=== PATIENT | female | born 1950 | race American Indian/Alaskan Native ===

== ENCOUNTER 2016-12-25 16:35 | Inpatient (IN) | payer MEDICARE, MEDICAID ==
[2016-12-25] MEDS ORDERED: Sodium Chloride 0.9% 1,000 ML IV STA ×2 (17:24→19:46)
--- NOTE | 2016-12-25 17:27 | ED PDOC ---
Arrival/HPI - General Time Seen by Provider: 12/25/16 17:03 - History of Present Illness Narrative History of Present Illness (Text): 12/25/16 17:23 66 yo female, hx of htn, dm, legally blind, presents with pereira, weakness. as per pt, reports "she is not being fed at home". pt reports "she does not wish to go home". pt denies fevers, cough, cp, abd pain, n/v/d, urainry changes, Past Medical History - Provider Review Nursing Documentation Reviewed: Yes - Cardiac Hx Hypertension: Yes - Pulmonary Hx Respiratory Disorders: No - Neurological Hx Neurological Disorder: No - HEENT Hx HEENT Disorder: Yes (Since ) - Renal Hx Renal Disorder: No - Endocrine/Metabolic Hx Diabetes Mellitus Type 2: Yes - Hematological/Oncological Hx Blood Disorders: No - Integumentary Hx Dermatological Disorder: No - Musculoskeletal/Rheumatological Hx Musculoskeletal Disorders: No - Gastrointestinal Hx Gastrointestinal Disorders: No - Genitourinary/Gynecological Hx Genitourinary Disorders: No - Psychiatric Hx Psychophysiologic Disorder: No Hx Substance Use: No - Anesthesia Hx Anesthesia: No Family/Social History Family/Social History: Unknown Family HX Smoking Status: Never Smoked Hx Alcohol Use: No Hx Substance Use: No Allergies/Home Meds Allergies/Adverse Reactions: Allergies No Known Allergies Allergy (Verified 02/21/16 01:11) Home Medications: Home Meds Medication Instructions Recorded Confirmed Amlodipine Besylate/Benazepril 1 cap PO DAILY 12/25/16 12/26/16 [Amlodipine Besylate and Benazepril Hydrochlor] Insulin Lispro Mix 75/25 [humalog 26 units SC ACBD 12/25/16 12/26/16 Mix 75/25 75 U/Ml-25 U/Ml 10 Ml] hydrALAZINE [Apresoline] 25 mg PO TID 12/25/16 12/26/16 Review of Systems - Review of Systems Constitutional: Normal Eyes: Normal ENT: Normal Respiratory: Normal Cardiovascular: Normal Gastrointestinal: Normal Genitourinary Female: Normal Musculoskeletal: Normal Skin: Normal Neurological: Normal Endocrine: Normal Hemo/Lymphatic: Normal Psychiatric: Normal Physical Exam Vital Signs Temp Pulse Resp BP Pulse Ox 12/25/16 17:17 97.8 F 90 20 151/78 H 95 Temperature: Afebrile Blood Pressure: Hypertensive Pulse: Regular Respiratory Rate: Normal Appearance: Positive for: Well-Appearing, Non-Toxic, Comfortable Pain Distress: None Mental Status: Positive for: Alert and Oriented X 3 - Systems Exam Head: Present: Atraumatic, Normocephalic Pupils: Present: PERRL Extroacular Muscles: Present: EOMI Conjunctiva: Present: Normal Mouth: Present: Moist Mucous Membranes Neck: Present: Normal Range of Motion Respiratory/Chest: Present: Clear to Auscultation, Good Air Exchange. No: Respiratory Distress, Accessory Muscle Use Cardiovascular: Present: Regular Rate and Rhythm, Normal S1, S2. No: Murmurs Abdomen: Present: Normal Bowel Sounds. No: Tenderness, Distention, Peritoneal Signs Back: Present: Normal Inspection Upper Extremity: Present: Normal Inspection. No: Cyanosis, Edema Lower Extremity: Present: Normal Inspection. No: Edema Neurological: Present: GCS=15, CN II-XII Intact, Speech Normal, Motor Func Grossly Intact, Normal Sensory Function, Normal Cerebellar Funct Skin: Present: Warm, Dry, Normal Color. No: Rashes Psychiatric: Present: Alert, Oriented x 3, Normal Insight, Normal Concentration Medical Decision Making ED Course and Treatment: 12/25/16 17:26 will r/o other metabolic, infectious, intracranial etiology- attemptign to reach socical worker. 12/27/16 08:01 endorse dto mainframe consultant pending final dispo, labs - Lab Interpretations Lab Results: 12/25/16 18:15 12/25/16 18:15 Lab Results 12/25/16 18:15: Sodium 139, Potassium 3.5 L, Chloride 103, Carbon Dioxide 27, Anion Gap 13, BUN 16, Creatinine 1.4, Est GFR ( Amer) 46, Est GFR (Non- Af Amer) 38, Random Glucose 142 H, Calcium 9.7, Magnesium 1.6 L, Total Bilirubin 0.5, AST 22, ALT 20, Alkaline Phosphatase 95, Lactate Dehydrogenase 300 L, Total Creatine Kinase 93, Troponin I < 0.01, Total Protein 7.5, Albumin 4.0, Globulin 3.5, Albumin/Globulin Ratio 1.1 12/25/16 18:15: PT 10.4, INR 0.96, APTT 27.1 12/25/16 18:15: WBC 8.0, RBC 4.25, Hgb 12.6, Hct 38.0, MCV 89.4, MCH 29.6, MCHC 33.2, RDW 13.7, Plt Count 235, MPV 11.0, Gran % 78.6 H, Lymph % (Auto) 13.3 L, [place] % (Auto) 7.2 H, Eos % (Auto) 0.5 L, Baso % (Auto) 0.4, Gran # 6.27, Lymph # 1.1 L, [place] # 0.6, Eos # 0.0, Baso # 0.03 - RAD Interpretation Radiology Orders: 12/25/16 17:22 CHEST PORTABLE [RAD] Stat 12/25/16 17:23 HEAD W/O CONTRAST [CT] Stat - Medication Orders Current Medication Orders: Amlodipine Besylate (Norvasc) 10 mg PO DAILY [facility] Last Admin: 12/26/16 10:14 Dose: 10 mg Aspirin (Ecotrin) 81 mg PO DAILY [facility] Last Admin: 12/26/16 10:14 Dose: 81 mg Atorvastatin Calcium (Lipitor) 20 mg PO DIN [facility] Last Admin: 12/26/16 17:56 Dose: 20 mg Hydrochlorothiazide (Microzide) 12.5 mg PO DAILY [facility] Last Admin: 12/26/16 10:14 Dose: 12.5 mg Insulin Human Regular (Humulin R Low) 0 units SC ACHS [facility] PRN Reason: Protocol Last Admin: 12/26/16 21:43 Dose: Not Given Non-Admin Reason: Blood Sugar Parameter Insulin Lispro Protam/Lispro Human (Humalog Mix 75/25) 26 units SC ACBD [facility] Last Admin: 12/26/16 18:39 Dose: 26 unit Lisinopril (Zestril) 20 mg PO DAILY [facility] Last Admin: 12/26/16 10:14 Dose: 20 mg Pantoprazole Sodium (Protonix Ec Tab) 40 mg PO 0630 [facility] Last Admin: 12/27/16 06:18 Dose: 40 mg Sitagliptin Phosphate (Januvia) 50 mg PO DAILY [facility] Last Admin: 12/26/16 10:14 Dose: 50 mg Discontinued Medications Hydralazine HCl (Apresoline) 25 mg PO TID [facility] Sodium Chloride (Sodium Chloride 0.9%) 1,000 mls @ 999 mls/hr IV .Q1H1M STA Stop: 12/25/16 18:24 Last Admin: 12/25/16 18:34 Dose: 999 mls/hr Sodium Chloride (Sodium Chloride 0.9%) 1,000 mls @ 100 mls/hr IV .Q10H STA Stop: 12/26/16 05:45 Last Admin: 12/25/16 20:26 Dose: 100 mls/hr Pneumococcal Polyvalent Vaccine (Pneumovax 23 Vaccine) 0.5 ml IM .ONCE ONE Stop: 12/26/16 01:28 Disposition/Present on Arrival - Present on Arrival Any Indicators Present on Arrival: No History of DVT/PE: No History of Uncontrolled Diabetes: Yes Urinary Catheter: No History Surgical Site Infection Following: None - Disposition Have Diagnosis and Disposition been Completed?: Yes Diagnosis: Dehydration, Weakness Disposition: HOSPITALIZED Disposition Time: 07:00 Patient Problems: Current Active Problems Problem Status Onset Dehydration Acute Weakness Acute Condition: STABLE
[2016-12-25 17:30] VITALS: BMI 35.1
[2016-12-25 18:36] LABS: ADD MANUAL DIFF? NO
[2016-12-25 18:48] LABS: BASO # 0.03 K/mm3 (0.0-2.0); BASO % 0.4 % (0.0-3.0); EOS % 0.5 % (1.5-5.0); GRAN # 6.27 (1.4-6.5); GRAN % 78.6 % (50.0-68.0); LYMPH # 1.1 (1.2-3.4); LYMPH % 13.3 % (22.0-35.0); MEAN CELL VOLUME 89.4 fL (80.0-105.0); MEAN CORPUSCULAR HEMOGLOBIN 29.6 pg (25.0-35.0); MEAN CORPUSCULAR HGB CONC 33.2 g/dl (31.0-37.0); MONO # 0.6 (0.1-0.6); MONO % 7.2 % (1.0-6.0); PLATELET COUNT 235 10^3/uL (120.0-450.0); RED CELL DISTRIBUTION WIDTH 13.7 % (11.5-14.5)
[2016-12-25 18:55] LABS: INR 0.96 (0.93-1.08); PARTIAL THROMBOPLASTIN TIME 27.1 Seconds (23.7-30.8)
[2016-12-25 19:01] LABS: ALB/GLOB RATIO 1.1 (1.1-1.8); ALKALINE PHOSPHATASE 95 U/L (38-133); ALT/SGPT 20 U/L (7-56); AST/SGOT 22 U/L (15-39); BILIRUBIN,TOTAL 0.5 mg/dL (0.2-1.3); BLOOD UREA NITROGEN 16 mg/dL (7-21); CALCIUM 9.7 mg/dL (8.4-10.5); CARBON DIOXIDE 27 mmol/L (21-33); CHLORIDE 103 mmol/L (98-107); GFR AFRICAN-AMERICAN 46; GLUCOSE,RANDOM 142 mg/dL (70-110); MAGNESIUM 1.6 mg/dL (1.7-2.2); POTASSIUM 3.5 mmol/L (3.6-5.0); SODIUM 139 mmol/L (132-148); TOTAL PROTEIN 7.5 g/dL (5.8-8.3)
[2016-12-25 19:13] LABS: TROPONIN I < 0.01 ng/mL
--- NOTE | 2016-12-25 19:33 | ED PDOC ---
Physical Exam Vital Signs Reviewed: Yes Vital Signs Temp Pulse Resp BP Pulse Ox 12/25/16 17:17 97.8 F 90 20 151/78 H 95 Temperature: Afebrile Blood Pressure: Hypertensive Pulse: Regular Respiratory Rate: Normal Appearance: Positive for: Well-Appearing, Non-Toxic, Comfortable Pain Distress: None Mental Status: Positive for: Alert and Oriented X 3 Medical Decision Making ED Course and Treatment: 12/25/16 19:00 Case signed out to me from the day shift but Dr. Louis, pending imaging, reevaluation and final disposition. The patient is a 66 year old female who came into the emergency department earlier today for evaluation of a headache and generalized weakness. 12/25/16 19:[address] Schmidt, who is aware and agrees with the plan to admit the patient to her services. I have discussed the results and plan with the patient, who expresses understanding. Patient given the opportunity to ask question, all questions were answered and there is agreement with the plan to be admitted to the hospital. - Lab Interpretations Lab Results: 12/25/16 18:15 12/25/16 18:15 Lab Results 12/25/16 18:15: Sodium 139, Potassium 3.5 L, Chloride 103, Carbon Dioxide 27, Anion Gap 13, BUN 16, Creatinine 1.4, Est GFR ( Amer) 46, Est GFR (Non- Af Amer) 38, Random Glucose 142 H, Calcium 9.7, Magnesium 1.6 L, Total Bilirubin 0.5, AST 22, ALT 20, Alkaline Phosphatase 95, Lactate Dehydrogenase 300 L, Total Creatine Kinase 93, Troponin I < 0.01, Total Protein 7.5, Albumin 4.0, Globulin 3.5, Albumin/Globulin Ratio 1.1 12/25/16 18:15: PT 10.4, INR 0.96, APTT 27.1 12/25/16 18:15: WBC 8.0, RBC 4.25, Hgb 12.6, Hct 38.0, MCV 89.4, MCH 29.6, MCHC 33.2, RDW 13.7, Plt Count 235, MPV 11.0, Gran % 78.6 H, Lymph % (Auto) 13.3 L, [place] % (Auto) 7.2 H, Eos % (Auto) 0.5 L, Baso % (Auto) 0.4, Gran # 6.27, Lymph # 1.1 L, [place] # 0.6, Eos # 0.0, Baso # 0.03 I have reviewed the lab results: Yes - RAD Interpretation Narrative RAD Interpretations (Text): 12/25/16 20:13 CXR- No acute process Radiology Orders: 12/25/16 17:22 CHEST PORTABLE [RAD] Stat 12/25/16 17:23 HEAD W/O CONTRAST [CT] Stat Editor: ED Physician - EKG Interpretation EKG Interpretation (Text): 12/25/16 20:12 EKG- NSR@ 72,no acute changes Interpreted by ED Physician: Yes Type: 12 lead EKG - Medication Orders Current Medication Orders: Sodium Chloride (Sodium Chloride 0.9%) 1,000 mls @ 100 mls/hr IV .Q10H STA Stop: 12/26/16 05:45 Discontinued Medications Sodium Chloride (Sodium Chloride 0.9%) 1,000 mls @ 999 mls/hr IV .Q1H1M STA Stop: 12/25/16 18:24 Last Admin: 12/25/16 18:34 Dose: 999 mls/hr - Scribe Statement The provider has reviewed the documentation as recorded by the Antonetteibpreston Connell Provider Scribe Attestation: All medical record entries made by the Scribe were at my direction and personally dictated by me. I have reviewed the chart and agree that the record accurately reflects my personal performance of the history, physical exam, medical decision making, and the department course for this patient. I have also personally directed, reviewed, and agree with the discharge instructions and disposition. Disposition/Present on Arrival - Present on Arrival Any Indicators Present on Arrival: No History of DVT/PE: No History of Uncontrolled Diabetes: Yes Urinary Catheter: No History of Decub. Ulcer: No History Surgical Site Infection Following: None - Disposition Have Diagnosis and Disposition been Completed?: Yes Diagnosis: Dehydration, Weakness Disposition: HOSPITALIZED Disposition Time: 19:43 Patient Plan: Observation Patient Problems: Current Active Problems Problem Status Onset Dehydration Acute Weakness Acute Condition: STABLE
--- NOTE | 2016-12-25 20:58 | CT ---
EXAM: CT Head Without Intravenous Contrast CLINICAL HISTORY: 66 years old, female; Pain; Headache; Headache not specified; Additional info: GUERIN TECHNIQUE: Axial computed tomography images of the head/brain without intravenous contrast. This CT exam was performed using one or more of the following dose reduction techniques: automated exposure control, adjustment of the mA and/or kV according to patient size, and/or use of iterative reconstruction technique. COMPARISON: No relevant prior studies available. FINDINGS: Brain: Mild atrophy. No intracranial hemorrhage. Several dural calcifications. 1.5 x 1.4 cm dural calcification vs calcified meningioma along falx. No definite edema. Ventricles: No hydrocephalus. Bones/joints: No acute fracture. Soft tissues: Unremarkable. Vasculature: Atherosclerotic disease of intracranial arteries. Sinuses: No acute sinusitis. Mastoid air cells: No mastoid effusion. Orbits: Bilateral phthisis bulbi. IMPRESSION: 1. No definite acute intracranial abnormality. 2. Incidental/non-acute findings are described above.
[2016-12-26] MEDS ORDERED: Pneumococcal 23-Valent Vaccine IM ONE (01:27)
--- NOTE | 2016-12-26 08:08 | RAD ---
HISTORY: weakness COMPARISON: No prior. FINDINGS: LUNGS: Minor bibasilar atelectasis or scarring. PLEURA: No significant pleural effusion identified, no pneumothorax apparent. CARDIOVASCULAR: Normal. OSSEOUS STRUCTURES: No significant abnormalities. VISUALIZED UPPER ABDOMEN: Normal. OTHER FINDINGS: None. IMPRESSION: Minor bibasilar atelectasis or scarring
[2016-12-26] MEDS: Insulin Reg-LOW-Coverage SC SCH ×3 (13:37→21:43)
--- NOTE | 2016-12-26 17:40 | CARD ---
APPROVED REPORT EKG Measurement Heart [id number] <Conclusion> Normal sinus rhythm Normal ECG
[2016-12-26] MEDS: Insulin Lispro (humaLOG) MIX 75/25(10 ml) SC SCH (18:39)
[2016-12-27] MEDS: Pantoprazole 40 mg EC Tab PO SCH (06:18)
[2016-12-27] MEDS ORDERED: Pantoprazole 40 mg EC Tab PO SCH (06:30)
[2016-12-27 07:36] LABS: MEAN CELL VOLUME 88.2 fL (80.0-105.0); MEAN CORPUSCULAR HEMOGLOBIN 29.2 pg (25.0-35.0); MEAN CORPUSCULAR HGB CONC 33.1 g/dl (31.0-37.0); RED CELL DISTRIBUTION WIDTH 13.3 % (11.5-14.5); WHITE BLOOD COUNT 6.1 10^3/ul (4.5-11.0)
[2016-12-27 07:53] LABS: CALCIUM 9.2 mg/dL (8.4-10.5); POTASSIUM 3.5 mmol/L (3.6-5.0)
[2016-12-27] MEDS: Insulin Reg-LOW-Coverage SC SCH ×4 (08:07→21:47)
--- NOTE | 2016-12-27 08:15 | HP ---
CHIEF COMPLAINT: Headache, feeling fatigue and tired. HISTORY OF PRESENT ILLNESS: The patient is a 66-year-old female with past medical history of hypertension, diabetes, legally blind. Came to the Emergency Room with headache, weakness. As per patient, she said she is not feeling fine. She is not happy wherever she is living. They are not giving her food and they are not taking care of her. She cannot take care of herself because of her blindness. No fever, no chills. No chest pain. No hematuria, no hematochezia, no dysuria. PAST MEDICAL HISTORY: Hypertension, diabetes mellitus type 2. FAMILY HISTORY: Father and mother noncontributory. HABITS: Never smoked, no drugs, no ethanol. ALLERGIES: The patient is not allergic with any medication. REVIEW OF SYSTEMS: The patient is seen and examined in her room. No nausea, vomiting, diarrhea. No hematuria, no hematochezia. No swelling of the legs. No chest pain, no palpitation, no headache, no dizziness. PHYSICAL EXAMINATION: VITAL SIGNS: Temperature 97.8, pulse 90, respiratory rate 20, blood pressure 151/78, pulse oximetry 95%. HEENT: Head normocephalic, atraumatic. Eyes, PERRLA. The patient is blind bilaterally. Conjunctivae normal. Nose patent. Mucous membranes moist. NECK: Supple. No carotid bruit, no JVD, no thyromegaly. CHEST: Bilaterally symmetrical. HEART: S1, S2 positive. LUNGS: Clear to auscultation. ABDOMEN: Soft. Bowel sounds positive. No organomegaly. EXTREMITIES: No edema, no cyanosis. NEUROLOGIC: The patient is awake, alert, moving all 4 extremities. No focal deficits. LABORATORIES: White blood cells 8.0, hemoglobin 12.6, hematocrit 38.0, platelets 235. Glucose 119, 253, 284. Sodium 139, potassium 3.5, BUN noted , creatinine 1.4, glucose 142. ASSESSMENT AND PLAN: The patient is a 66-year-old lady with hypokalemia, replaced, uncontrolled diabetes mellitus, hypomagnesemia. Came with headache, fatigue and tired. CAT scan of the head done, no definite acute intracranial abnormality, incidentally acute finding several dural calcifications 1.5 x1.4 cm dural calcification , may be calcified meningioma along falx. The patient has history of hypertension, legally blind. The patient was seen by Dr. in the Emergency Room, put patient on sliding scale. The patient was seen by Dr. Long Angela also. Looks like patient is a little bit dehydrated, fatigued. Started IV fluid. Sugar is uncontrolled. Put patient on the aspirin , sliding scale, home medication, Lipitor for hypercholesterolemia, Protonix for gastrointestinal prophylaxis. Gastrointestinal and deep venous thrombosis prophylaxis. Repeat labs. Will follow up. Kelley Noonan MD cc: [id number] TT: 12/27/2016 08:14:59 en MTDD
[2016-12-27] MEDS: Insulin Lispro (humaLOG) MIX 75/25(10 ml) SC SCH ×2 (08:55→17:47)
[2016-12-27] MEDS ORDERED: Potassium Chloride 20 mEq ER Tab PO ONE (12:11)
--- NOTE | 2016-12-27 20:09 | PN ---
DATE: 12/27/2016 SUBJECTIVE: The patient is seen and examined on the bedside. Looks comfortable. No fever, no chills, no nausea, vomiting, or diarrhea. No hematuria or hematochezia. No swelling of the leg. No chest pain, no palpitation. Has some social issues. PHYSICAL EXAMINATION: VITAL SIGNS: Temperature 98, pulse 81, blood pressure 118/56, respirations 20. HEAD: Normocephalic, atraumatic. EYES: PERRLA. Extraocular muscles intact. Conjunctivae clear. Nose patent. Mucous membranes moist. NECK: Supple. No carotid bruit, thyromegaly. CHEST: Bilaterally symmetrical. HEART: S1, S2 positive. LUNGS: Clear to auscultation. ABDOMEN: Soft. Bowel sounds present. No organomegaly. EXTREMITIES: No edema, no cyanosis. NEUROLOGIC: The patient is awake, alert, moving all 4 extremities. No focal deficits but patient is bilaterally blind. MEDICATIONS: Ecotrin, Humalog, Januvia, Lipitor, Norvasc, Zestril. LABORATORY DATA: White count 6.1, hemoglobin 11.9, hematocrit 36.0, and platelets 229. Sodium 138, potassium 3.5, BUN noted creatinine 1.2, glucose 319, 183, 130, 121. Hemoglobin A1c is 8.4. ASSESSMENT AND PLAN: The patient is a 66-year-old lady with hypertriglyceridemia, uncontrolled diabetes mellitus, hyponatremia, anemia. She is admitted to [facility] for some social issues also. According to the patient, she used to live with her sister in the apartment then her sister lost apartment and the [place] and now this patient moved with her own daughter. According to the mother, daughter is not feeding her and is not taking care of her. She wanted to call protective agencies. I spoke to the social secretary, Muriel. Muriel is working on that, she called adult protective agencies and called housing and/or social workers. The patient refused to go to rehab and refused to go to longterm, we have problems with her replacement. GI and deep venous thrombosis prophylaxis. Repeat labs. We will follow up. Kelley Noonan MD cc: [id number] TT: 12/27/2016 20:08:56 Confirmation # [id number] Dictation # [id number] jn MTDD
[2016-12-28] MEDS: Pantoprazole 40 mg EC Tab PO SCH (05:56)
[2016-12-28 07:48] LABS: BILIRUBIN,TOTAL 0.4 mg/dL (0.2-1.3); CALCIUM 9.4 mg/dL (8.4-10.5); MAGNESIUM 1.7 mg/dL (1.7-2.2); POTASSIUM 3.9 mmol/L (3.6-5.0); TOTAL PROTEIN 6.8 g/dL (5.8-8.3)
[2016-12-28] MEDS: Insulin Reg-LOW-Coverage SC SCH ×4 (08:25→21:48)
[2016-12-28] MEDS: Insulin Lispro (humaLOG) MIX 75/25(10 ml) SC SCH ×2 (08:30→17:56)
[2016-12-29] MEDS: Pantoprazole 40 mg EC Tab PO SCH (05:34)
--- NOTE | 2016-12-29 07:49 | PN ---
DATE: 12/28/2016 The patient is a 66-year-old female. The patient seen and examined on the bedside, looks comfortable . Always talking to somebody on the phone. As per patient, that is her friends. No nausea, vomitin g, diarrhea. No hematuria, no hematochezia. No swelling of the legs. No chest pain, no palpitation . PHYSICAL EXAMINATION: VITAL SIGNS: Temperature 97.4, pulse 70, blood pressure 123/70, respiratory rate 18. HEENT: Head normocephalic, atraumatic. Eyes PERRLA. Extraocular muscles intact. Conjunctivae chandana r. Nose is patent. NECK: Supple. No carotid bruit, no JVD, no thyromegaly. CHEST: Bilaterally symmetrical. HEART: S1, S2 positive. LUNGS: Clear to auscultation. ABDOMEN: Soft. Bowel sounds positive. No organomegaly. EXTREMITIES: No edema, no cyanosis. NEUROLOGIC: The patient is awake, alert, moving all 4 extremities. No focal deficits. MEDICATIONS: Ecotrin, insulin, Januvia, Lipitor, hydrochlorothiazide, Norvasc, Protonix, Zestril. LABORATORIES: White blood cells 6.1, hemoglobin 11.9, hematocrit 36.0, platelets 229. Glucose 198, 147, 274, 122. Sodium 139, potassium 3.9, BUN 19, creatinine 1.4. ASSESSMENT AND PLAN: The patient is a 66-year-old female with uncontrolled diabetes mellitus, anemia , dementia, history of hypertriglyceridemia. According to patient, she is unable to do her activitie s of daily living. Bilaterally blind by , is not able to take care of herself. bench worker cristina jackson for placement. Gastrointestinal and deep venous thrombosis prophylaxis. Will follow up. Kelley Noonan MD cc: [id number] TT: 12/29/2016 07:48:57 Confirmation # [id number] Dictation # [id number] en
[2016-12-29] MEDS: Insulin Reg-LOW-Coverage SC SCH ×4 (08:23→22:00)
[2016-12-29] MEDS: Insulin Lispro (humaLOG) MIX 75/25(10 ml) SC SCH ×2 (09:40→18:18)
[2016-12-29] MEDS ORDERED: Insulin Reg-LOW-Coverage ONE (12:42)
--- NOTE | 2016-12-29 20:03 | PN ---
DATE: 12/29/2016 SUBJECTIVE: The patient is a 66-year-old lady who was seen and examined on the bedside, does not loo k like in distress. No nausea, vomiting, or diarrhea. No hematuria or hematochezia. No swelling of the leg. No chest pain, no palpitation, no headache, no dizziness. No fever, no chills. PHYSICAL EXAMINATION: VITAL SIGNS: Temperature 98, pulse 68, blood pressure 108/50, respiratory rate 18. HEENT: Head normocephalic, atraumatic. Eyes: PERRLA. Extraocular movements intact. Conjunctivae a re clear. Nose patent. Mucous membranes moist. NECK: Supple. No carotid bruit, JVD or thyromegaly. CHEST: Bilaterally symmetrical. HEART: S1, S2 positive. LUNGS: Clear to auscultation. ABDOMEN: Soft. Bowel sounds positive. No organomegaly. EXTREMITIES: No edema, no cyanosis. NEUROLOGIC: The patient is awake, alert, moving all 4 extremities. No focal deficits. MEDICATIONS: Ecotrin, insulin, Januvia, Lipitor, hydralazine, Norvasc, Protonix, and Zestril. LABORATORY DATA: White blood cells 6.1, hemoglobin 11.9, hematocrit 36.0, platelets 229. Blood gluc ose 151, 241,144, 198, 147, 274. ASSESSMENT AND PLAN: The patient is a 66-year-old lady, bilaterally blind, insulin-dependent diabete s mellitus. We did CAT scan of the head within normal limits, reviewed by me. Has had some social i ssues. The patient is actually ready for discharge, but cannot. I spoke to patient's son, Neo keyshawn ne number [phone]. Lengthy of time discussion done with Neo. He does not want to take his mot her back. According to him, she never raised him and he is not responsible for her. The patient kaur s not want to go back to her daughter. Other daughter lives out of state. Lengthy time discussion d one with Muriel, the social welfare administrator and Dr. Garcia also, administration is involved. When the patient has history of anemia, hypertriglyceridemia. The patient is informed that if she will stay in the [facility], chance is she can get a hospital-acquired infection. Even family is aware. Therefore I trie d to explain to Neo, but I was just on the phone and he hung up, does not want to talk to me about h is mother. Meanwhile, will continue present treatment. Will follow up. Kelley Noonan MD cc: [id number] TT: 12/29/2016 20:02:36 Confirmation # [id number] Dictation # [id number] jn
[2016-12-30] MEDS: Insulin Reg-LOW-Coverage SC SCH ×4 (08:00→22:00)
[2016-12-30] MEDS: Insulin Lispro (humaLOG) MIX 75/25(10 ml) SC SCH ×2 (08:08→16:42)
--- NOTE | 2016-12-30 19:39 | PN ---
DATE: 12/30/2016 SUBJECTIVE: The patient is seen and examined on the bedside, looks comfortable. No nausea, vomiting, or diarrhea. No hematuria, hematochezia, swelling of the leg. No chest pain, no palpitation, no headache, no dizziness. PHYSICAL EXAMINATION: VITAL SIGNS: Temperature is 97.6. Pulse 80, blood pressure 125/80 , respiratory rate 20. HEAD: Normocephalic, atraumatic. Eyes: PERRLA. Extraocular movements intact. Conjunctivae clear. Nose patent. Mucous membranes moist. NECK: Supple. No carotid bruit, JVD, thyromegaly. CHEST: Bilaterally symmetrical. HEART: S1, S2 positive. LUNGS: Clear to auscultation. ABDOMEN: Soft. Bowel sounds present. No organomegaly. EXTREMITIES: No edema, no cyanosis. NEUROLOGIC: The patient is awake, alert, moving all extremities. No focal deficits. MEDICATIONS: Ecotrin, insulin, Januvia, Lipitor, hydrochlorothiazide, Norvasc, Protonix, and Zestril. LABORATORY DATA: White blood cells 6.1, hemoglobin 11.9, hematocrit 36.0, platelets 229. Glucose 201, 319, 222, 151. ASSESSMENT AND PLAN: The patient is a 66-year-old lady with a history of bilaterally blind since , insulin-dependent diabetes mellitus. Sugar is not very well controlled. I will change the units of insulin. History of hypertension, hypercholesterolemia. History of degenerative joint disease. The patient looks comfortable, getting physical therapy. GI and deep venous thrombosis prophylaxis. Repeat labs. We will follow up. Kelley Noonan MD cc: [id number] TT: 12/30/2016 19:38:47 Confirmation # [id number] Dictation # [id number] jn MTDD
[2016-12-31] MEDS: Pantoprazole 40 mg EC Tab PO SCH (06:00)
[2016-12-31 07:29] LABS: MEAN CELL VOLUME 88.3 fL (80.0-105.0); MEAN CORPUSCULAR HEMOGLOBIN 28.9 pg (25.0-35.0); MEAN CORPUSCULAR HGB CONC 32.7 g/dl (31.0-37.0); MEAN PLATELET VOLUME 10.8 fl (7.0-11.0); RED CELL DISTRIBUTION WIDTH 13.3 % (11.5-14.5); WHITE BLOOD COUNT 5.6 10^3/ul (4.5-11.0)
[2016-12-31 07:42] LABS: CALCIUM 9.4 mg/dL (8.4-10.5); POTASSIUM 3.7 mmol/L (3.6-5.0)
[2016-12-31 07:48] LABS: IRON 67 ug/dL (45-180)
[2016-12-31] MEDS: Insulin Lispro (humaLOG) MIX 75/25(10 ml) SC SCH ×2 (08:02→17:24)
[2016-12-31] MEDS: Insulin Reg-LOW-Coverage SC SCH ×4 (08:03→22:00)
[2016-12-31 13:12] LABS: FOLATE 10.1 ng/mL
[2017-01-01] MEDS: Pantoprazole 40 mg EC Tab PO SCH (06:24)
[2017-01-01] MEDS: Insulin Reg-LOW-Coverage SC SCH ×4 (07:40→21:34)
--- NOTE | 2017-01-01 07:57 | PN ---
DATE: 12/31/2016 The patient is a 66-year-old female. The patient was seen and examined on the bedside, looks comfortable. No nausea, vomiting, diarrhea. No hematuria, no hematochezia. No swelling of the legs. No chest pain, no palpitation, no headache, no dizziness. PHYSICAL EXAMINATION: VITAL SIGNS: Temperature 99.7, pulse 65, blood pressure 115/70 , respiratory rate 17. HEAD: Normocephalic, atraumatic. Eyes: PERRLA. Extraocular muscles intact. Conjunctivae clear. Nose patent. Mucous membranes moist. NECK: Supple. No carotid bruit, no JVD, no thyromegaly. CHEST: Bilaterally symmetrical. HEART: S1, S2 positive. LUNGS: Clear to auscultation. ABDOMEN: Soft. Bowel sounds positive. No organomegaly. EXTREMITIES: No edema, no cyanosis. NEUROLOGIC: The patient is awake, alert, moving all 4 extremities. No focal deficits. MEDICATIONS: Ecotrin, insulin, Januvia, Lipitor, hydrochlorothiazide, Norvasc, Protonix, Zestril. LABORATORIES: White blood cells 5.6, hemoglobin 12.1, hematocrit 37.0, platelets 231. Glucose 194, 248, 169, 125. Sodium 139, potassium 3.4, BUN 24, creatinine 1.3, calcium 9.4. Folate 10.1. ASSESSMENT AND PLAN: The patient is a 66-year-old lady with history of diabetes mellitus, bilaterally blind since . Diabetes is not very well controlled. Noncompliance, history of hypertension, hypercholesterolemia, degenerative joint disease. Gastrointestinal and deep venous thrombosis prophylaxis. Repeat labs. Will follow up. Kelley Noonan MD cc: [id number] TT: 01/01/2017 07:56:09 Confirmation # [id number] Dictation # [id number] en MTDD
[2017-01-01] MEDS: Insulin Lispro (humaLOG) MIX 75/25(10 ml) SC SCH ×2 (08:07→17:10)
[2017-01-02] MEDS: Pantoprazole 40 mg EC Tab PO SCH (06:06)
[2017-01-02] MEDS: Insulin Reg-LOW-Coverage SC SCH ×3 (08:19→16:57)
[2017-01-02] MEDS: Insulin Lispro (humaLOG) MIX 75/25(10 ml) SC SCH ×2 (08:26→16:53)
[2017-01-02 17:23] VITALS: BP 148/44; PULSE 82; RESP 19; TEMP 98.5; O2SAT 97
== END 2017-01-02 20:43 | DRG 641 ==
LOC: ED 16:35 → ERH 19:43 → 3RSO 21:04 → OBSVTOIN 12-26 22:38
PROVIDERS: ADMIT Internal Medicine; ATTEND Internal Medicine
DX: E86.0 Dehydration (principal); E11.65 Type 2 diabetes mellitus with hyperglycemia; E87.1 Hypo-osmolality and hyponatremia; F03.90 Unspecified dementia, unspecified severity, without behavioral disturbance, psychotic disturbance, mood disturbance, and anxiety; E83.42 Hypomagnesemia; I10 Essential (primary) hypertension; E87.6 Hypokalemia; H54.8 Legal blindness, as defined in USA; E78.2 Mixed hyperlipidemia; D64.9 Anemia, unspecified; M19.90 Unspecified osteoarthritis, unspecified site; Z79.4 Long term (current) use of insulin; Z91.19 Patient's noncompliance with other medical treatment and regimen